=== PATIENT | female | born 1960 | race Caucasian/White ===

== ENCOUNTER 2019-04-28 08:50 | Day surgery (SDC) | payer OTHER ==
[2019-04-28] VITALS (16 sets, daily range): BP systolic 113–205; BP diastolic 68–94; PULSE 70–92; RESP 12–24; Ht 160 cm; Wt 57.9 kg
[~2019-04-28] VITALS: Ht 160 cm; Wt 57.9 kg
[~2019-04-28 08:50] MED LIST: CEFAZOLIN 2 GM/50 ML (PMX) 50 ML IVPB SCH
[2019-04-28] MEDS ORDERED: ATOR20TA65 ORAL (09:35)
[2019-04-28] MEDS ORDERED: LEVO25TA ORAL (09:35)
[2019-04-28] MEDS ORDERED: BENA20TA4 ORAL (09:35)
[2019-04-28] MEDS ORDERED: ASPI-903 PO (09:35)
[2019-04-28] MEDS ORDERED: hydrALAzine 20 MG INJ IV ONE (10:00)
[2019-04-28] MEDS ORDERED: LACTATED RINGER'S 1,000 ML IV SCH (10:30)
[2019-04-28] MEDS ORDERED: BUPIVACAINE 0.25% (MPF) 30 ML INJ ONE (11:40)
--- NOTE | 2019-04-28 11:48 | PREAC ---
Date/Time of Note Date/Time of Note DATE: 04/28/19 TIME: 09:59 Anesthesia Eval and Record Evaluation Time Pre-Procedure Interview DATE: 04/28/19 TIME: 09:59 Age 58 Sex female NPO: 8 hrs Preoperative diagnosis Right carpal tunnel syndrome Planned procedure Right carpal tunnel release Past Medical History Past Medical History: Includes Cardio: HTN, Dyslipidemia Endo: Hypothyroid Surgery & Anesthesia Issues No known issue Meds Anticoagulation: No Beta Loan within 24 hr: No Reason Beta Loan not given: Pt. not on B-Loan Reported Medications Aspirin* (Aspirin* Chew) 81 Mg Tab.chew, 81 MG PO DAILY, TAB.CHEW 04/28/19 Atorvastatin Calcium (Atorvastatin Calcium) 20 Mg Tablet, 1 TAB ORAL DAILY 04/28/19 Benazepril Hcl* (Benazepril Hcl*) 20 Mg Tablet, 1 TAB ORAL DAILY 04/28/19 Levothyroxine Sodium* (Synthroid*) 25 Mcg Tablet, 1 TAB ORAL QAM 04/28/19 Current Medications Cefazolin Sodium/ Dextrose 50 ml @ 100 mls/hr PREOP IVPB ; Start 04/28/19 at 06:30; Stop 04/28/19 at 16:00 Meds reviewed: Yes Allergies Coded Allergies: No Known Allergy (Unverified , 04/28/19) Allergies Reviewed: Yes Labs/Studies Labs Reviewed: Reviewed by anesthesiologist test: N/A Pre-procedure Exam Airway: Adequate mouth opening Mallampati: Mallampati II Teeth: Normal Lung: Normal Heart: Normal ASA Physical Status ASA physical status: 3 Emergency: None Planned Anesthetic General/MAC: LMA, MAC Planned Pain Management Parenteral pain med Pre-operative Attestations Prior to commencing anesthesia and surgery, the patient was re-evaluated, there was verification of: *The patient's identity *The results of appropriate recent lab work and preoperative vital signs *The above evaluation not changing prior to induction *Anesthetic plan, risk benefits, alternative and complications discussed with patient/family; questions answered; patient/family understands, accepts and wishes to proceed. CHRISTIANO MUIR MD Apr 28, 2019 10:11
[2019-04-28] MEDS ORDERED: LIDOCAINE 1% (MPF) 30 ML INJ ONE (11:53)
[2019-04-28] MEDS ORDERED: FENTAnyl 50 MCG/ML VIAL ONE (11:54)
[2019-04-28] MEDS ORDERED: MIDAZOLAM 1 MG/ML 2 ML INJ ONE (11:54)
[2019-04-28] MEDS ORDERED: PROPOFOL 0 ML ONE (11:54)
[2019-04-28] MEDS ORDERED: CEFAZOLIN 1 GM INJ ONE (12:04)
[2019-04-28] MEDS ORDERED: EPHEDrine 25 MG/5 ML SYG IV PRN (12:30)
[2019-04-28] MEDS ORDERED: DIPHENHYDRAMINE 50 MG INJ IV PRN (12:30)
[2019-04-28] MEDS ORDERED: MEPERIDINE 25 MG INJ IV PRN (12:30)
[2019-04-28] MEDS ORDERED: hydrALAzine 20 MG INJ IV PRN (12:30)
[2019-04-28] MEDS ORDERED: LABETALOL HCL 20MG INJ IV PRN (12:30)
[2019-04-28] MEDS ORDERED: METOCLOPRAMIDE 10 MG INJ IV PRN (12:30)
[2019-04-28] MEDS ORDERED: OXYCODONE/ACETAMINOPHEN (5/325) TAB PO PRN ×2 (12:30)
[2019-04-28] MEDS ORDERED: FENTAnyl 50 MCG/ML VIAL IV PRN ×3 (12:30)
[2019-04-28] MEDS ORDERED: ONDANSETRON 4 MG INJ IV PRN (12:30)
[2019-04-28] MEDS ORDERED: MIDAZOLAM 1 MG/ML 2 ML INJ IV PRN (12:30)
--- NOTE | 2019-04-28 12:40 | OPR ---
Date/Time of Note Date/Time of Note DATE: 04/28/19 TIME: 12:36 Operative Report Preoperative Diagnosis Right carpal tunnel syndrome Postoperative Diagnosis Right carpal tunnel syndrome Operation/Procedure Performed Right carpal tunnel release Surgeon see signature line Patient Care Manager None Anesthesia Type: MAC Anesthesiologist: CHRISTIANO MUIR MD Tourniquet Time: 5 minutes Estimated Blood Loss: minimal Transfusion none Specimen none Grafts/Implants none Complications none Pt Condition Post Procedure: stable Disposition: PACU Indications Patient is a 58 year old right hand dominant female with severe right carpal t unnel syndrome. She has failed injections and bracing. She has electrodiagnostic studies confirming carpal tunnel syndrome. She is indicated for surgery. She understands risks of surgery which include but are not limited to infection, pain, bleeding, neurovascular injury, stiffness, swelling, no improvement, decreased strength, and other anesthesia-related risks. She elected to proced. Procedure Description Patient was identified in preoperative holding area. Upper extremity was marked. The patient was brought back to the operating room. The patient was placed supine. Light IV sedation was administered. Two grams IV Ancef was given. Time- out was performed indicating correct patient, site, and procedure. Local injection of 0.25% marcaine and 1% lidocaine plain was injected into the wrist. The arm was then prepped and draped in usual sterile fashion. Arm was exsanguinated with Esmarch and tourniquet was elevated to 250mm Hg. A longitudinal incision was marked out in the palmar aspect of the hand along the radial border of the fourth ray. Skin was incised sharply. Palmar fascia was divided in line with the skin incision. The transverse carpal ligament was then divided in a proximal to distal direction. Distally, the fat pad was visualized. Proximally, a blunt tenotomy scissors was passed above and below the antebrachial fascia, and this was divided under direct visualization. The palmar cutaneous branch of the median nerve was protected. The nerve was noted to be flattened. No other abnormalities were encountered. The nerve was intact. The tourniquet was released and hemostasis was achieved with bipolar cautery. Skin was closed with 4-0 nylon and a sterile dressing was applied. There was brisk capillary refill and all sponge and instruments counts were correct at the end of the case. The patient was awoken from anesthesia and taken to PACU in stable condition. MANNY VILLALPANDO MD 14, 2019 12:39
--- NOTE | 2019-04-28 13:13 | PAC ---
Date/Time of Note Date/Time of Note DATE: 04/28/19 TIME: 13:12 Post-Anesthesia Notes Post-Anesthesia Note Last documented vital signs Vital Signs Date Temp Pulse Resp B/P (MAP) Pulse Ox O2 O2 Flow FiO2 Time Delivery Rate 04/28/19 92 24 120/73 98 Room Air 13:01 (89) 04/28/19 98.6 12:46 Activity: WNL Respiratory function: WNL Cardiovascular function: WNL Mental status: Baseline Pain reasonably controlled: Yes Hydration appropriate: Yes Nausea/Vomiting absent: Yes Comments BT: 98.6 CHRISTIANO MUIR MD Apr 28, 2019 13:13
== END 2019-04-28 14:04 | disposition home or self-care (01) ==
LOC: SDS 08:50
PROVIDERS: ATTEND Orthopaedic Surgery
DX: G56.01 Carpal tunnel syndrome, right upper limb (principal); I10 Essential (primary) hypertension; E03.9 Hypothyroidism, unspecified; E78.5 Hyperlipidemia, unspecified; Z79.82 Long term (current) use of aspirin
CPT/HCPCS: 64721; J0360; J0690; J2250; J3010